=== PATIENT | female | born 1985 | race Hispanic/Latino ===

== ENCOUNTER 2016-12-14 05:39 | Emergency (ER) | payer OTHER ==
[~2016-12-14] VITALS: Ht 157.5 cm; Wt 54.5 kg
[~2016-12-14 05:39] MED LIST: NOMED; PHEN-684 PO; SULF1TAB7 PO
[2016-12-14 05:41] VITALS: BP 103/70; PULSE 66; RESP 18; O2SAT 99
--- NOTE | 2016-12-14 06:01 | ED.REPORT ---
HPI-Abd Pain F Under 40 Date of Service Dec 14, 2016 ED Provider: Nursing Notes Stated Complaint: STOMACH PAIN Chief Complaint: Female Abdominal Pain Nursing Notes Reviewed: Yes Allergies: Coded Allergies: No Known Allergies (Verified Allergy, Unknown, 12/14/16) Scheduled Sulfamethoxazole/Trimeth 800-160 mg (Bactrim DS) 1 Each Tablet 1 TABLET PO BID Scheduled PRN Phenazopyridine (Pyridium) 200 Mg Tablet 200 MG PO TID PRN PRN For Pain Miscellaneous Medications No Historical Medication (No Historical Medication) Ea General Time Seen by MD: 06:00 Past Medical History Past Medical History Healthy Past Surgical History Denies Reports: Cholecystectomy Smoking History Never Smoker Social History Alcohol Use: Denies alcohol use Drug Use: Denies drug use Other Social History: Lives with parents, Local resident Ambulatory Status Independent Physical Exam Initial Vital Signs Vital Signs (First) Date Time Temp Pulse Resp B/P Pulse Ox O2 Delivery O2 Flow Rate FiO2 12/14/16 05:41 36.4 66 18 103/70 99 Room Air Discharge & Departure Referrals: [facility] (PCP) Daria Hernandez DO Dec 14, 2016 06:01
--- NOTE | 2016-12-14 06:19 | ED.REPORT ---
HPI-General Illness Date of Service Dec 14, 2016 ED Provider: Deann Logan MD Patient is a 30 year old female who presents to the ED complaining of lower, crampy, abdominal pain onset 0100 this morning. Associated symptoms include constipation. She denies hematochezia, diarrhea, nausea, vomiting, fevers, chills, or any other symptoms. She started her period this morning. She has had similar symptoms during her period previously, but not this severe. Her mother has similar issues with constipation during periods. She has taken Tylenol with mild relief. Patient has had a cholecystectomy. Nursing Notes Stated Complaint: STOMACH PAIN Chief Complaint: Female Abdominal Pain Nursing Notes Reviewed: Yes Allergies: Coded Allergies: No Known Allergies (Verified Allergy, Unknown, 12/14/16) Scheduled Sulfamethoxazole/Trimeth 800-160 mg (Bactrim DS) 1 Each Tablet 1 TABLET PO BID Scheduled PRN Bacitracin (Bacitracin Ointment) 28.4 Gm Oint...g. 1 APPLIC TP PRN PRN PRN skin infection Docusate Sodium (Docusate Sodium) 250 Mg Capsule 250 MG PO BID PRN PRN For Constipation Naproxen (Naproxen) 500 Mg Tablet.dr 500 MG PO BID PRN PRN For Pain Phenazopyridine (Pyridium) 200 Mg Tablet 200 MG PO TID PRN PRN For Pain Miscellaneous Medications No Historical Medication (No Historical Medication) Ea General Time Seen by MD: 06:03 Chief Complaint Abdominal pain Hx Obtained From: Patient Arrived By: Walk-in Sudden in Onset?: Yes Onset Occurred: 5 - 8 hours ago Symptom Duration: Since onset Similar Sx Previous: Yes Past Medical History Past Medical History Healthy Past Surgical History Denies Reports: Cholecystectomy Smoking History Never Smoker Social History Alcohol Use: Denies alcohol use Drug Use: Denies drug use Other Social History: Lives with parents, Local resident Ambulatory Status Independent Review of Systems Full Review of Systems Constitutional: Denies: Chills, Fever GI: Reports: Abdominal pain, Constipation, Denies: Diarrhea, Hematochezia, Nausea, Vomiting Complete sys rev & neg: except as marked. Physical Exam Vital Signs Vital Signs Date Time Temp Pulse Resp B/P Pulse Ox O2 Delivery O2 Flow Rate FiO2 12/14/16 05:41 36.4 66 18 103/70 99 Room Air Initial VS: Reviewed, Vital signs normal Neck: Full range of motion Neurologic: Alert, Oriented, Nonfocal Psychiatric: Mood/affect normal, Behavior normal, Normal thought content General/Constitutional: Awake, Alert Head / Eyes: Atraumatic, Normocephalic, EOMI Respiratory / Chest: Atraumatic, Breath sounds NL, Breath sounds = bilat, No respiratory distress Cardiovascular: Heart rate NL, Regular rhythm, Heart sounds NL, No gallop, No murmurs, No rubs Abdomen: Atraumatic, Soft, Non-tender Back: Atraumatic Skin: Warm, Dry Rash / Lesion Notes: significant acne scarring to face, superficial areas with early impetigo exam declined Re-Eval/Medical Decision Time of Eval: 06:30 Re-Evaluation/Progress Note: Discussed plan for discharge. Patient understands and agrees with plan. All questions addressed at this time. Counseled Regarding: Diagnosis, Need for follow-up, When/why to return to ED Discharge & Departure Primary Impression: Menstrual cramps Additional Impressions: Constipation Constipation type: unspecified constipation type Qualified Code: K59.00 - Constipation, unspecified Acne Acne type: unspecified acne Qualified Code: L70.9 - Acne, unspecified Impetigo Disposition: Home Discharge Condition All VS Reviewed: Yes Condition: Stable Patient Instructions: Constipation (ED) Thank you for trusting us with your care today. As we discussed it is most likely your menstrual cycle that is causing you to have the constipation and difficulty with bowel movements. We are going to give you Four medications to help with this. One of the medications (Naprosin) will be for the period pain and you will take twice a day. One will be a stool softener (Docusate) that you will take twice a day to help decrease your constipation. Another will be one dose of Magnesium Citrate to take when you get home to help move your bowels today. Finally, we are giving you an antibiotic cream for your face to help with the infection that you have and help to heal the lesions. All of your medications have been sent electronically to [facility] para confiar en nosotros a cuidarte hoy da. Clements hemos discutido, inman dolor es ms probable relacionado con inman periodo (la rony) y sarai causa inman estreimiento. Vamos a sydnee 4 medicamentos para ayudarte. Benny (Naprosin) se va a eduard 2 veces al da para ayudar con el dolor de inman periodo. Benny (docusate) es para hacer ms suave inman noreen y se va a eduard 2 veces al da para prevenir el entrenamiento. Benny es un lquido para hoy (magnesium citrate) que le va a hacer el noreen rpidamente hoy da. Finalmente, vamos a sydnee kirsten crema antibitico para las manchitas en inman sujit para ayudar con la infeccin y para que se sanan ms rpido. Todos saba medicamentos benavides sido mandado electronicamenta a [facility]. Referrals: [facility] copies to: [facility] Deann Logan MD Dec 14, 2016 06:19 SALLY BYERS Dec 14, 2016 06:29
[2016-12-14] MEDS ORDERED: BACI28.4 TP (06:51)
[2016-12-14] MEDS ORDERED: DOCU250C2 PO (06:51)
[2016-12-14] MEDS ORDERED: NAPR500T5 PO (06:51)
[2016-12-14 07:30] VITALS: BP 91/59; PULSE 55; RESP 20; O2SAT 96
[2016-12-14 09:06] VITALS: BP 101/64; PULSE 56; RESP 16; O2SAT 97
== END 2016-12-14 09:07 | disposition home or self-care (01) ==
LOC: SED 05:39
DX: N94.6 Dysmenorrhea, unspecified (principal); K59.00 Constipation, unspecified; L70.9 Acne, unspecified; L01.00 Impetigo, unspecified; Z90.49 Acquired absence of other specified parts of digestive tract

== ENCOUNTER 2017-01-02 17:15 | Emergency (ER) | payer OTHER ==
[~2017-01-02] VITALS: Ht 154.9 cm; Wt 61.4 kg
[~2017-01-02 17:15] MED LIST changes: +BACI28.4 TP; +DOCU250C2 PO; +NAPR500T5 PO
[2017-01-02 17:24] VITALS: BP 99/62; PULSE 75; RESP 15; O2SAT 99
--- NOTE | 2017-01-02 21:47 | ED.REPORT ---
HPI-Back Pain Under 40 Date of Service Jan 02, 2017 ED Provider: Terry Larry MD Patient is a 31 year old female who presents to the ED complaining of lower back pain onset earlier today. Associated symptoms include pain that radiates into both legs, numbness in her feet and difficulty bearing weight secondary to pain. She denies urinary incontinence, bowel or trauma. The patient states that she sat down in a car harder than normal and then she began having pain later. Nursing Notes Stated Complaint: EXTREME LEG,FOOT,AND BACK PAIN Chief Complaint: Back Pain or Injury Nursing Notes Reviewed: Yes Allergies: Coded Allergies: No Known Allergies (Verified Allergy, Unknown, 01/02/17) Scheduled Sulfamethoxazole/Trimeth 800-160 mg (Bactrim DS) 1 Each Tablet 1 TABLET PO BID Scheduled PRN Bacitracin (Bacitracin Ointment) 28.4 Gm Oint...g. 1 APPLIC TP PRN PRN PRN skin infection Docusate Sodium (Docusate Sodium) 250 Mg Capsule 250 MG PO BID PRN PRN For Constipation Naproxen (Naproxen) 500 Mg Tablet.dr 500 MG PO BID PRN PRN For Pain Phenazopyridine (Pyridium) 200 Mg Tablet 200 MG PO TID PRN PRN For Pain Miscellaneous Medications No Historical Medication (No Historical Medication) Ea General Time Seen by MD: 21:46 Chief Complaint Lumbar pain Hx Obtained From: Patient Arrived By: Walk-in Sudden in Onset?: Yes Caused by: Spontaneous/no mechanism Location: : Spinal lumbar area: Spinal sacral area Quality: Painful Radiation: : Left leg above knee: Left leg below knee: Right leg above knee: Right leg below knee Severity: Current: Moderate Similar Sx Previous: No Past Medical History Past Medical History Healthy Past Surgical History Denies Reports: Cholecystectomy Smoking History Never Smoker Social History Alcohol Use: Denies alcohol use Drug Use: Denies drug use Other Social History: Lives with parents, Local resident Ambulatory Status Independent Review of Systems Constitutional: Denies: Chills, Fever Respiratory: Denies: Non-productive cough, Shortness of breath Female: Denies: Incontinence Musculoskeletal: Reports: Back pain, Extremity pain Neurologic: Reports: Numbness (in feet), Denies: Bladder dysfunction, Bowel dysfunction, Lightheaded, Weakness Complete sys rev & neg: except as marked. Skin: Denies Itching, Denies Rash Physical Exam Initial Vital Signs Vital Signs (First) Date Time Temp Pulse Resp B/P Pulse Ox O2 Delivery O2 Flow Rate FiO2 01/02/17 17:24 36.8 75 15 99/62 99 Room Air Initial VS: Reviewed General/Constitutional: Awake, Alert Distress / Hydration: Positive: Distress mild Back: Atraumatic, Inspection NL straight leg positive at 40 degrees bilaterally Neurologic: Oriented X3, Speech NL, No motor deficits, No sensory deficits, CN II - XII intact Respiratory / Chest: Atraumatic, Breath sounds NL, Breath sounds = bilat, No respiratory distress Cardiovascular: Heart rate NL, Regular rhythm, Heart sounds NL Lower Extremity / Pelvis / MS: Neurologic intact, Vascular intact full strength in the legs Head / Eyes: Atraumatic, Normocephalic, PERRL, EOMI Skin: Atraumatic, Color NL, No rash, Warm, Dry Psychiatric: Affect NL, Mood NL Re-Eval/Medical Decision Med Decision/Clinical Course The patient reports only modest improvement of her pain, her ability to ambulate is dramatically better objectively. Re-Evaluation/Progress : Time of Eval: 22:50 Patient Status: Condition improved Re-Evaluation/Progress Note: Discussed plan for discharge. patient understands and agrees to plan. All questions were addresssed. Counseled Regarding: Diagnosis, Lab results, Need for follow-up, When/why to return to ED Discharge & Departure Impression: Primary Impression: Lumbosacral strain Encounter type: initial encounter Qualified Code: S39.012A - Strain of muscle, fascia and tendon of lower back, initial encounter Additional Impression: Lumbar radiculopathy, acute Disposition: Home All VS Reviewed: Yes Condition: Stable Patient Instructions: Lumbar Radiculopathy (ED) Additional Instructions: I do not suspect an immediately dangerous condition in your back. I believe that you have a strain of the muscles or a herniated disc. I recommend follow- up in the coming days at the clinic for reevaluation. For now I recommended dexamethasone 4 mg once daily. Also you can use hydrocodone/APAP one or 2 tablets every 4 hours as needed for severe pain. Ondansetron as needed for nausea Referrals: [facility] (PCP) Scribe Attestation Portions of this note were transcribed by Re Perez. IDr. Larry personally performed the history, physical exam and medical decision-making; I reviewed and confirmed the accuracy of the information in the transcribed note. Signed by: Nikole Ordoñez, 01/02/17 copies to: [facility] Terry Larry MD Jan 02, 2017 21:47 Nan Perez Jan 02, 2017 21:57
[2017-01-02] MEDS ORDERED: HYDROmorphone 1 mg/mL Inj IM ONE (21:55)
[2017-01-02] MEDS ORDERED: _Ondansetron ODT 4 mg Tablet PO PRN (22:55)
[2017-01-02] MEDS ORDERED: _HYDROcodone/APAP 5-325 mg Tablet PO PRN (22:55)
[2017-01-02] MEDS ORDERED: HYDR-4003 PO (22:56)
[2017-01-02 23:07] VITALS: BP 101/55; PULSE 71; RESP 16; O2SAT 99
== END 2017-01-02 23:08 | disposition home or self-care (01) ==
LOC: SED 17:15
DX: S39.012A Strain of muscle, fascia and tendon of lower back, initial encounter (principal); M54.16 Radiculopathy, lumbar region; X50.9XXA Other and unspecified overexertion or strenuous movements or postures, initial encounter; Y93.89 Activity, other specified; Y92.810 Car as the place of occurrence of the external cause; Y99.8 Other external cause status
CPT/HCPCS: 96372; 99284; J1170; J1885